=== PATIENT | female | born 1955 | race Two or more races ===

== ENCOUNTER → 2017-09-18 | Outpatient (CLI) | payer BC, OTHER ==
[~2017-09-18] MED LIST: Cyclobenzaprine5 MG PO; HYDCHL12.5 PO; LANS30EC PO; LEVSOD100 PO; Norco 10-325 T1 EACH PO; OLME20 PO
== END | disposition home or self-care (01) ==
LOC: LAB EV 13:45 → LAB SHORT 13:45
DX: R30.0 Dysuria (principal)
CPT/HCPCS: 87077; 87086; 87186

== ENCOUNTER 2018-07-22 08:42 | Day surgery (SDC) | payer BC, MEDICARE, OTHER ==
[~2018-07-22] VITALS: Ht 165.1 cm; Wt 104.5 kg
[~2018-07-22 08:42] MED LIST changes: +Benicar40 MG PO; +Biotin300 MCG PO; +Flonase 0.05% N16 GM; +GABA300 PO; +Halobetasol Pro15 GM TOP; +LEVO-T112 MCG PO; +VITAMIN D50000 UNIT PO
[2018-07-22] MEDS ORDERED: LOSA25 (09:32)
[2018-07-22] MEDS ORDERED: Zanaflex4 M1 (09:34)
== END 2018-07-22 10:53 | disposition home or self-care (01) ==
LOC: ORSCSDS 08:42
PROVIDERS: Surgery
PROC: 0DJD8ZZ Inspection of Lower Intestinal Tract, Via Natural or Artificial Opening Endoscopic (ICD-10-PCS; principal; 2018-07-22 10:00)
DX: Z12.11 Encounter for screening for malignant neoplasm of colon (principal); I10 Essential (primary) hypertension; Z79.899 Other long term (current) drug therapy
CPT/HCPCS: J2704; J7120

== ENCOUNTER 2019-12-21 14:06 | Emergency (ER) | payer MEDICARE, OTHER ==
[~2019-12-21] VITALS: Ht 162.6 cm; Wt 113.4 kg
[~2019-12-21 14:06] MED LIST changes: +LOSA25 PO; +Zanaflex4 M1
[2019-12-21 15:02] LABS: BASOPHILS PERCENT AUTO 1 % (0-2); EOSINOPHILS ABSOLUTE AUTO 0.14 K/mm3 (0.00-0.68); EOSINOPHILS PERCENT AUTO 1 % (0-6); Hematocrit 47.7 % (33.0-51.0); Hemoglobin 15.3 g/dL (11.5-16.0); IMMATURE GRAN ABSOLUTE AUTO 0.05 K/mm3 (0.00-0.10); IMMATURE GRAN PERCENT AUTO 0 % (0-1); LYMPHOCYTES ABSOLUTE AUTO 2.43 K/mm3 (0.84-5.20); LYMPHOCYTES PERCENT AUTO 20 % (21-46); MONOCYTES PERCENT AUTO 8 % (4-13); Mean Corpuscular HGB 29.6 pg (26.0-34.0); Mean Corpuscular HGB Conc 32.1 g/dL (31.5-36.5); Mean Corpuscular Volume 92 fL (80-100); Mean Platelet Volume 10.2 fL (9.1-12.4); NEUTROPHILS ABSOLUTE AUTO 8.44 K/mm3 (1.96-9.15); NEUTROPHILS PERCENT AUTO 70 % (41-73); Platelet Count 296 K/mm3 (150-400); RDW Coefficient Variation 12.7 % (11.7-14.2); RDW Standard Deviation 43.3 fL (35.1-46.3); Red Blood Cell Count 5.17 M/mm3 (3.80-5.20); White Blood Cell Count 12.06 K/mm3 (4.00-11.30)
[2019-12-21 15:24] LABS: Albumin, Blood 3.7 g/dL (3.4-5.0); Albumin/Globulin Ratio 0.9 (0.8-1.8); Bilirubin, Total 0.5 mg/dL (0.1-1.0); Bun/Creatinine Ratio 15.7 (12.0-20.0); Calcium, Blood 9.1 mg/dL (8.5-10.1); Creatinine, Blood 1.02 mg/dL (0.40-1.00); Globulin, Blood 4.2 g/dL (2.2-4.0); Potassium, Blood 3.9 mmol/L (3.5-5.5); Total Protein, Blood 7.9 g/dL (6.4-8.2); Troponin I 0.026 ng/mL (0.000-0.040)
[2019-12-21 16:37] LABS: Source, Urine Clean Catch
[2019-12-21 16:45] LABS: Appearance, Urine Hazy (Clear); Bilirubin, Urine Neg (Neg); Blood, Urine Neg (Neg); Color, Urine Yellow (P-Yellow); Glucose Qualitative, Urine Neg (Neg); Ketones, Urine 1+ (Neg); Leukocyte Esterase, Urine 1+ (Neg); Nitrite, Urine Neg (Neg); Protein, Urine 2+ (Neg); Urobilinogen, Urine 1+ (Normal)
[2019-12-21 17:00] LABS: Bacteria Rare /hpf; Red Blood Cells, Urine 0-2 /hpf (0-2); Squamous Epithelial Cells Not Seen /hpf (Few)
== END 2019-12-21 19:11 | disposition home or self-care (01) ==
LOC: ER 14:06
PROVIDERS: Emergency Medicine
DX: R55 Syncope and collapse (principal); I10 Essential (primary) hypertension; E03.9 Hypothyroidism, unspecified; Z91.09 Other allergy status, other than to drugs and biological substances; Z79.899 Other long term (current) drug therapy
CPT/HCPCS: 36415; 71046; 80053; 81001; 84484; 85025; 87086; 87147; 93005; 93010; 99284-25

== ENCOUNTER 2020-03-15 10:59 | Day surgery (SDC) | payer MEDICARE, OTHER ==
[~2020-03-15] VITALS: Ht 162.6 cm; Wt 104.4 kg
[~2020-03-15 10:59] MED LIST changes: +LIVALO2 MG PO; +METF500 PO
[2020-03-15] MEDS ORDERED: LOSA50 (11:23)
--- NOTE | 2020-03-15 11:55 | NUR ---
03/15/20 1155 Lalitha Suarez ([place] SITE CHECK. DR NIXON PERFORMED INTERSCALENE BLOCK ON THE RIGHT SIDE. PT TOW.
--- NOTE | 2020-03-15 12:46 | NUR ---
03/15/20 1246 Ryley Moss EPI 1MG ADDED TO THE FIRST 3 BAGS OF LR USED FOR JOINT IRRIGATION.
--- NOTE | 2020-03-15 13:59 | NUR ---
03/15/20 7869 Sandra Davenport UPON ARRIVING TO STEP DOWN RN ASSISTED PT TO THE CHAIR VIA STAND BY ASSIST. ONCE IN THE CHAIR PT HOOKED BACK UP TO MONITORS AND SATS WERE IN THE 80'S ON ROOM AIR. RN PLACED A NASAL CANULA ON PT AND PROVIDED 3L OF SUPPLIMENTAL O2. RN ENCOURAGED PT TO DEEP BREATH AND USE THE INCENTIVE SPIROMETER. PT DEMONSTRATED INCENTIVE SPIROMETER X3 AND WAS ONLY ABLE TO REACH THE 500 LINE, LUNG SOUNDS ARE CLEAR AND REGULAR BILATERALLY. OTHER VSS. PT HAS WARM BLANKETS, SNACKS AND DRINKS AT CHAIRSIDE. PT'S NOTIFIED OF HER PROGRESS. ULTRASLING ON AND INTACT AT THIS TIME.
== END 2020-03-15 14:41 | disposition home or self-care (01) ==
LOC: ORSCSDS 10:59
PROVIDERS: Orthopaedic Surgery
PROC: 0LQ14ZZ Repair Right Shoulder Tendon, Percutaneous Endoscopic Approach (ICD-10-PCS; principal; 2020-03-15 12:30)
PROC: 0LS34ZZ Reposition Right Upper Arm Tendon, Percutaneous Endoscopic Approach (ICD-10-PCS; principal; 2020-03-15 12:30)
PROC: 0RNJ4ZZ Release Right Shoulder Joint, Percutaneous Endoscopic Approach (ICD-10-PCS; principal; 2020-03-15 12:30)
DX: M75.121 Complete rotator cuff tear or rupture of right shoulder, not specified as traumatic (principal); M75.21 Bicipital tendinitis, right shoulder; M75.41 Impingement syndrome of right shoulder; M19.011 Primary osteoarthritis, right shoulder; I10 Essential (primary) hypertension; K21.9 Gastro-esophageal reflux disease without esophagitis; Z79.899 Other long term (current) drug therapy; E66.01 Morbid (severe) obesity due to excess calories; Z68.39 Body mass index [BMI] 39.0-39.9, adult
CPT/HCPCS: A9270; C1713; J0171; J0690; J1100; J1885; J2250; J2405; J2704; J2710; J3010; J7120

== ENCOUNTER → 2021-07-06 | Outpatient (CLI) | payer MEDICARE, OTHER ==
[~2021-07-06] MED LIST changes: +LOSA50
[2021-07-06 16:22] LABS: Source, Urine Clean Catch
[2021-07-06 19:44] LABS: Bilirubin, Urine Neg (Neg); Blood, Urine Neg (Neg); Glucose Qualitative, Urine Neg (Neg); Ketones, Urine Neg (Neg); Leukocyte Esterase, Urine Neg (Neg); Nitrite, Urine Neg (Neg); Protein, Urine Neg (Neg); Specific Gravity, Urine 1.015 (1.003-1.022); Urobilinogen, Urine NORM (Normal)
[2021-07-06 20:17] LABS: Appearance, Urine Clear (Clear); Color, Urine Pale Yellow (P-Yellow)
== END | disposition home or self-care (01) ==
LOC: LAB SHORT 16:20 → LAB 16:20
PROVIDERS: Internal Medicine
DX: R30.0 Dysuria (principal)
CPT/HCPCS: 81003; 87077; 87086; 87186

== ENCOUNTER 2022-03-14 07:31 | Day surgery (SDC) | payer MEDICARE, OTHER ==
[~2022-03-14] VITALS: Ht 165.1 cm; Wt 97.6 kg
[~2022-03-14 07:31] MED LIST changes: -Biotin300 MCG PO; -LOSA50; +LOSA50 PO; +Lovastatin20 MG PO; +MERIBIN5 MG PO; +PANT40 PO; +WEGOVY0.25 MG/0. SC
--- NOTE | 2022-03-14 11:32 | NUR ---
Dressing to procedure site clean, dry, intact with no visible drainage, swelling, erythema or bruising noted. Lungs clear T/O to Auscultation. PT ON RM AIR. PT TOLERATING PO FLUIDS WELL SNACKS.
--- NOTE | 2022-03-14 12:12 | NUR ---
Discharge instructions reviewed with patient. Patient verbalizes understanding. Copy given to patient to take home. Patient States Post-Procedure ride home has been arranged. Patient up to Ambulate independently. Gait steady.
--- NOTE | 2022-03-14 12:18 | NUR ---
Discharge instructions reviewed with patient. Patient verbalizes understanding. Copy given to patient to take home. Patient States Post-Procedure ride home has been arranged. Discharged via wheelchair to private car for ride home.
== END 2022-03-14 23:11 | disposition home or self-care (01) ==
LOC: ORSCMMR 07:31 → ORD 09:30 → ORSCMMR 09:30
PROVIDERS: Surgery
PROC: 0JBM0ZX Excision of Left Upper Leg Subcutaneous Tissue and Fascia, Open Approach, Diagnostic (ICD-10-PCS; principal; 2022-03-14 09:00)
PROC: 0JBL0ZX Excision of Right Upper Leg Subcutaneous Tissue and Fascia, Open Approach, Diagnostic (ICD-10-PCS; principal; 2022-03-14 09:00)
DX: D21.22 Benign neoplasm of connective and other soft tissue of left lower limb, including hip (principal); D21.21 Benign neoplasm of connective and other soft tissue of right lower limb, including hip; I10 Essential (primary) hypertension; E78.00 Pure hypercholesterolemia, unspecified; E66.9 Obesity, unspecified; Z68.35 Body mass index [BMI] 35.0-35.9, adult; Z79.899 Other long term (current) drug therapy
CPT/HCPCS: 88304; A9270; J0690; J2250; J2704; J2795; J3010; J7120

== ENCOUNTER → 2022-10-23 | Outpatient (CLI) | payer MEDICARE, OTHER | LOC: PLD 14:20 → LAB SHORT 14:20 | DX: N90.89 Other specified noninflammatory disorders of vulva and perineum (principal) | CPT/HCPCS: 88305; 88312 ==

== ENCOUNTER → 2024-04-21 | Outpatient (CLI) | payer MEDICARE, OTHER | LOC: LAB 12:36 → LAB SHORT 12:36 | DX: R30.0 Dysuria (principal) | CPT/HCPCS: 87077; 87086; 87186 ==